=== PATIENT | male | born 1975 | race Caucasian/White ===

== ENCOUNTER 2022-10-07 06:04 | Outpatient (OUT) | payer OTHER, SELFPAY ==
--- NOTE | 2022-10-07 06:20 | NM_ITS ---
Patient: CATHI WALLACE Exam Date: 10/07/2022 : 1975 Gender:M Ordering : DR Reese Benitez . Admission #: [id number] Family : DR. NORBERTO WHITTINGTON . Order #: [id number] CLICK HERE TO VIEW EXAM RADIOLOGY REPORT PROCEDURE: NM BRYN PERF SPECT REST STR COMPARISON: None. INDICATIONS: Palpitations TECHNIQUE: Exam Description: Stress/Rest one day protocol gated SPECT Rest Imagin.9 mCi Tc-99m Cardiolite IV on 10/07/2022 Stress Imaging 30.1 mCi Tc-99m Cardiolite IV on 10/07/2022 Exercise Protocol: Pillo Heart Rate (bpm): Rest: 82 Max: 153 PMHR: 88 Blood Pressure: Rest: 124/82 Max: 164/88 Exercise Time: Minutes: 7 Seconds: 15 Stage Reached: Stage: 3 Mets 8.9 Symptoms: Rest and peak stress ECG findings were non-diagnostic and the exercise portion of the study was Non-diagnostic per attending physician Dr. Whittington . For more details please see separate cardiac stress test report. FINDINGS: QUALITY OF STUDY: Excellent. PERFUSION DEFECT: None. LOCATION: N/A SIZE: N/A. SEVERITY: N/A. TYPE: N/A. WALL MOTION: Normal. LV SIZE: Normal. 69 mL. TID / TCD: None; 1.0 LVEF: Normal. Calculated EF 74%. SUMMARY: Myocardial perfusion imaging study is NORMAL. CONCLUSION: 1. Normal nuclear medicine myocardial perfusion scan. Dictated by: Elpidio Goff M.D. on 10/08/2022 at 11:02 Approved by: Elpidio Goff M.D. on 10/08/2022 at 11:06
--- NOTE | 2022-10-07 12:23 | P.STRESS_ITS ---
Stress Test Stress Test Requesting physician: Reese Benitez Procedure: Exercise Cardiolite stress test General Information: Reason for Stress Test: Palpitations Cardiac History and Risk Factors: None Resting 12 - Lead Electrocardiogram: Rate & rhythm: Normal sinus at a rate of 82. [place]: Normal T-waves: Inverted in III ST-segments: Normal Stress Test: Protocol: Pillo protocol was followed, with injection of Cardiolite once target heart rate was achieved. Exercise capacity: Good exercise capacity. Total exercise time of 7minutes 16seconds reached Pillo stage 3 at 3.4MPH, 14% grade, & 8.9 METs. Blood pressure: Initial: 124/82, Maximum: 164/88, Recovery: 136/80 Rate & rhythm: Patient remained in sinus rhythm during the exercise and recovery portions of the study.? The maximum heart rate was 153, which was 88% of the maximum predicted heart rate 173. ST-segments & T-waves: 4 minutes into recovery, T-waves in aVF appeared biphasic - No further tracings available after this point. No changes were noted in II. Patient response/symptoms: There were no symptoms similar to the chief complaint. Interpretation: Non-diagnostic stress test with resting inverted T waves in III and development of subtle biphasic T waves in aVF during recovery, but no true ST segment changes were noted. No reproducible symptoms. Cardiolite imaging interpretation will be reported separately. Clinical correlation required.?
== END 2022-10-07 06:05 | disposition home or self-care (01) ==
PROVIDERS: PCP Family Medicine; Visit Provider Family Medicine
DX: R00.2 Palpitations (principal)
CPT/HCPCS: 78452; 93017; A9500

== ENCOUNTER 2023-03-13 12:43 | Outpatient (OUT) | payer OTHER, SELFPAY ==
[2023-03-13 13:45] LABS: Alanine Aminotransferase 54 U/L (16-63); Albumin Globulin Ratio 1.1; Albumin Level 3.7 g/dL (3.4-5.0); Alkaline Phosphatase 96 U/L (46-116); Aspartate Amino Transferase 24 U/L (15-37); Bilirubin Direct 0.2 mg/dL (0.0-0.2); Bilirubin Total 1.1 mg/dL (0.2-1.0); Chol HDL Ratio 3.5; Cholesterol 213 mg/dL (<=200); Globulin 3.5 g/dL; HDL Cholesterol 60 mg/dL (40-60); Total Protein 7.2 g/dL (6.4-8.2); Triglycerides 108 mg/dL (<=150); VLDL CHOLESTEROL 21.6 mg/dL
== END 2023-03-13 12:44 | disposition home or self-care (01) ==
LOC: LAB 12:44
PROVIDERS: PCP Family Medicine; Visit Provider Family Medicine
DX: E78.00 Pure hypercholesterolemia, unspecified (principal)
CPT/HCPCS: 36415; 80061; 80076

== ENCOUNTER 2023-04-16 07:19 | Outpatient (OUT) | payer OTHER, SELFPAY ==
--- OUTSIDE RECORDS SUMMARY | 2023-04-16 07:23 | XMS_ITS | CCD ---
Author Name Unknown Address [address] [facility] [address] [place] [id number] Organization [facility] Care Team Providers Care [employer] Consultant Name Role Phone HOY ., DR VELASCO Attending Unavailable HOY ., DR VELASCO Consulting Unavailable HOY ., DR VELASCO Primary Care Unavailable HOY ., DR VELASCO Admitting Unavailable HOY ., DR VELASCO Consulting Unavailable HOY ., DR VELASCO Primary Care Unavailable HOY ., DR VELASCO Admitting Unavailable HOY ., DR VELASCO Attending Unavailable HOY ., DR VELASCO Attending Unavailable HOY ., DR VELASCO Consulting Unavailable HOY ., DR VELASCO Primary Care Unavailable HOY ., DR VELASCO Admitting Unavailable HOY ., DR VELASCO Consulting Unavailable HOY ., DR VELASCO Primary Care Unavailable HOY ., DR VELASCO Admitting Unavailable HOY ., DR VELASCO Attending Unavailable HOY ., DR VELASCO Attending Unavailable HOY ., DR VELASCO Primary Care Unavailable HOY ., DR VELASCO Admitting Unavailable Allergies Allergy Classification Reported Allergen(s) Allergy Type Date of Onset Reaction(s) Facility (1 source) Naproxen Drug Allergy [address] [facility]ository (1 source) Sulfamethoxazole / Trimethoprim Drug Allergy [address] [facility] Problems Active Problems Problem Classification Problem Date Documented Da te Episodic/Chronic Residual codes; unclassified (4 sources) Obstructive sleep apnea (adult) (pediatric); Translations: [OBSTRUCTIVE SLEEP APNEA] Onset: 01-01-2022 Chronic Past or Other Problems Problem Classification Problem Date Documented Da te Episodic/Chronic Cardiac dysrhythmias (4 sources) Palpitations; Translations: [PALPITATIONS] Onset: 10-30-2021 Episodic Other lower respiratory disease (1 source) Dyspnea, unspecified; Translations: [DYSPNEA UNSPECIFIED] Onset: 10-31-2021 Episodic Other screening for suspected conditions (not mental disorders or infectious disease) (1 source) Encounter for screening for malignant neoplasm of prostate; Translations: [ENC SCREEN MALIG NEOPLASM PROSTATE] Onset: 10-19-2021 Episodic Results Test Name Value Interpretation Reference Range Facility CBC AUTO DIFFon 08-14-2022 BASO # 0.0 103/ul Normal 0.0-0.1 [facility] Comment on above: Performed By: #### C BC #### [facility] [address] [address] [address] Kermit Manzo Basophils/100 WBC (Bld) 0.6 % Normal 0.2-2.0 [facility] Comment on above: Performed By: #### C BC #### [facility] [address] [address] [address] Kermit Manzo EO # 0.4 103/ul Normal 0.0-0.7 [facility] Comment on above: Performed By: #### C BC #### [facility] [address] [address] [address] Kermit Manzo Eosinophils/100 WBC (Bld) 6.4 % Normal 0.9-7.0 [facility] Comment on above: Performed By: #### C BC #### [facility] [address] [address] [address] Kermit Manzo Erythrocyte distribution width (RBC) [Ratio] 12.4 % Normal 11.0-15.0 [facility] Comment on above: Performed By: #### C BC #### [facility] [address] [address] [address] Kermit Manzo Hematocrit (Bld) [Volume fraction] 47.2 % Normal 42.0-54.0 [facility] Comment on above: Performed By: #### C BC #### [facility] [address] [address] [address] Kermit Manzo Hemoglobin (Bld) [Mass/Vol] 15.5 g/dL Normal 14.0-18.0 [facility] Comment on above: Performed By: #### C BC #### [facility] [address] [address] [address] Kermit Manzo IG # 0.01 10e3/ul Normal 0.00-0.03 [facility] Comment on above: Performed By: #### C BC #### [facility] [address] [place] [address] Dr. Kermit Manzo IG % 0.2 % Normal 0.0-0.5 [facility] Comment on above: Performed By: #### C BC #### [facility] [address] [place] [address] Dr. Kermit Manzo LYMPH # 2.1 103/ul Normal 1.2-3.8 [facility] Comment on above: Performed By: #### C BC #### [facility] [address] [place] [address] Dr. Kermit Manzo Lymphocytes/100 WBC (Bld) 33.3 % Normal 20.5-60.0 [facility] Comment on above: Performed By: #### C BC #### [facility] [address] [place] [address] Dr. Kermit Manzo MANUAL DIFF REQ NO Normal [facility] Comment on above: Performed By: #### C BC #### [facility] [address] [place] [address] Dr. Kermit Manzo MCH (RBC) [Entitic mass] 28.3 pg Normal 25.9-34.0 [facility] Comment on above: Performed By: #### C BC #### [facility] [address] [place] [address] Dr. Kermit Manzo MCHC (RBC) [Mass/Vol] 32.8 g/dL Normal 29.9-35.2 [facility] Comment on above: Performed By: #### C BC #### [facility] [address] [place] [address] Dr. Kermit Manzo MCV (RBC) [Entitic vol] 86.3 fL Normal 80.0-94.0 [facility] Comment on above: Performed By: #### C BC #### [facility] [address] [place] [address] Dr. Kermit Manzo MONO # 0.6 103/ul Normal 0.3-0.8 [facility] Comment on above: Performed By: #### C BC #### [facility] [address] [place] [address] Dr. Kermit Manzo Monocytes/100 WBC (Bld) 8.9 % Normal 1.7-12.[address] [facility] Comment on above: Performed By: #### C BC #### [facility] [address] [place] [address] Dr. Kermit Manzo NEUT # 3.2 103/ul Normal 1.4-6.[address] [facility] Comment on above: Performed By: #### C BC #### [facility] [address] [place] [address] Dr. Kermit Manzo Neutrophils/100 WBC (Bld) 50.6 % Normal 43.0-75.[address] [facility] Comment on above: Performed By: #### C BC #### [facility] [address] [place] [address] Dr. Kermit Manzo Platelet mean volume (Bld) [Entitic vol] 10.2 fL Normal 9.5-13.[address] [facility] Comment on above: Performed By: #### C BC #### [facility] [address] [place] [address] Dr. Kermit Manzo PLT 274 103/ul Normal 150-[address] [facility] Comment on above: Performed By: #### C BC #### [facility] [address] [place] [address] Dr. Kermit Manzo RBC 5.47 106/ul Normal 4.70-6.[address] [facility] Comment on above: Performed By: #### C BC #### [facility] [address] [place] [address] Dr. Kermit Manzo WBC 6.4 103/ul Normal 4.0-11.[address] [facility] Comment on above: Performed By: #### C BC #### [facility] [address] [place] [address] Dr. Kermit Manzo FREE T3on 08-14-2022 FREE T3 3.47 pg/mlL Normal 2.18-3.[address] [facility] Comment on above: Performed By: #### T ESTTOT #### [facility] [address] [address] [address] Kermit Manzo GLYCOHEMOGLOBIN A1Con 2022 ADA RECOMMENDATION SEE BELOW Normal [facility] Comment on above: Result Comment: ADA RECOMMENDED LIMIT 4.0 - 6.0 ADA THERAPEUTIC TARGET < 7.0 ACTION SUGGESTED > 7.0 Performed By: #### T ESTTOT #### [facility] [address] [address] [address] Kermit Manzo Glucose [Mass/Vol] 103 mg/dL Normal [facility] Comment on above: Performed By: #### T ESTTOT #### [facility] [address] [address] [address] Kermit Manzo HbA1c (Bld) [Mass fraction] 5.2 % Normal 4.5-6.2 [facility] Comment on above: Performed By: #### T ESTTOT #### [facility] [address] [address] [address] Kermit Manzo IRONon 08-14-2022 Iron [Mass/Vol] 104.0 ug/dL Normal 65.0-175.0 [facility] Comment on above: Performed By: #### T ESTTOT #### [facility] [address] [place] [address] Dr. Kermit Manzo LIPID PROFILEon 08-14-2022 CHOL-HDL RATIO NORM SEE BELOW Normal [facility] Comment on above: Result Comment: 3.3 - 4.4 LOW RISK 4.4 - 7.1 AVERAGE RISK 7.1 - 11.0 MODERATE RISK >11.0 HIGH RISK Performed By: #### T ESTTOT #### [facility] [address] [place] [address] Dr. Kermit Manzo Cholesterol [Mass/Vol] 238 mg/dL Critically high <=200 [facility] Comment on above: Performed By: #### T ESTTOT #### [facility] [address] [place] [address] Dr. Kermit Manzo Cholesterol in HDL [Mass/Vol] 70 mg/dL Critically high 40-60 [facility] Comment on above: Performed By: #### T ESTTOT #### [facility] [address] [address] [address] Kermit Manzo Cholesterol in LDL [Mass/Vol] 150.0 mg/dL Normal [facility] Comment on above: Performed By: #### T ESTTOT #### [facility] [address] [address] [address] Kermit Manzo Cholesterol.total/Cho lesterol in HDL [Mass ratio] 3.4 {ratio} Normal [facility] Comment on above: Performed By: #### T ESTTOT #### [facility] [address] [address] [address] Kermit Manzo HDL NORMAL > or = 60 mg/dl - LO W CARDIOVASCULAR RISK <40 mg/dl - HIGH CARDIOVASCULAR RISK Normal [facility] Comment on above: Performed By: #### T ESTTOT #### [facility] [address] [address] [address] Kermit Manzo LDL CALC NORMAL SEE BELOW Normal [facility] Comment on above: Result Comment: <100 mg/dl OPTIMAL 100 - 129 mg/dl NEAR OR ABOVE OPTIMAL 130 - 159 mg/dl BORDERLINE HIGH 160 - 189 mg/dl HIGH >190 mg/dl VERY HIGH Performed By: #### T ESTTOT #### [facility] [address] [address] [address] Kermit Manzo Triglyceride [Mass/Vol] 90 mg/dL Normal <=150 [facility] Comment on above: Performed By: #### T ESTTOT #### [facility] [address] [address] [address] Kermit Manzo VLDL CALC 18.0 mg/dL Normal [facility] Comment on above: Performed By: #### T ESTTOT #### [facility] [address] [address] [address] Kermit Manzo MONOon 08-14-2022 Monocytes (Bld) [#/Vol] Negative Normal NEGATIVE [facility] Comment on above: Performed By: #### T ESTTOT #### [facility] [address] [address] [address] Kermit Manzo PROF 14(COMP METB)on 023 Albumin [Mass/Vol] 4.2 g/dL Normal 3.4-5.0 [facility] Comment on above: Performed By: #### T ESTTOT #### [facility] [address] [address] [address] Kermit Manzo Albumin/Globulin [Mass ratio] 1.1 {ratio} Normal [facility] Comment on above: Performed By: #### T ESTTOT #### [facility] [address] [address] [address] Kermit Manzo ALP [Catalytic activity/Vol] 108 U/L Normal 46-116 [facility] Comment on above: Performed By: #### T ESTTOT #### [facility] [address] [address] [address] Kermit Manzo ALT [Catalytic activity/Vol] 47 U/L Normal 16-63 [facility] Comment on above: Performed By: #### T ESTTOT #### [facility] [address] [address] [address] Kermit Manzo Anion gap [Moles/Vol] 12.7 mmol/L Normal [facility] Comment on above: Performed By: #### T ESTTOT #### [facility] [address] [address] [address] Kermit Manzo AST [Catalytic activity/Vol] 20 U/L Normal 15-37 [facility] Comment on above: Performed By: #### T ESTTOT #### [facility] [address] [address] [address] Kermit Manzo Bilirubin [Mass/Vol] 1.5 mg/dL Critically high 0.2-1.0 [facility] Comment on above: Performed By: #### T ESTTOT #### [facility] [address] [address] [address] Kermit Manzo Calcium [Mass/Vol] 8.9 mg/dL Normal 8.5-10.1 [facility] Comment on above: Performed By: #### T ESTTOT #### [facility] [address] [place] [address] Dr. Kermit Manzo Chloride [Moles/Vol] 102 mmol/L Normal 98-107 [facility] Comment on above: Performed By: #### T ESTTOT #### [facility] [address] [address] [address] Kermit Manzo CO2 [Moles/Vol] 28.6 mmol/L Normal 21.0-32.0 [facility] Comment on above: Performed By: #### T ESTTOT #### [facility] [address] [address] [address] Kermit Manzo Creatinine [Mass/Vol] 0.97 mg/dL Normal 0.70-1.[address] [facility] Comment on above: Performed By: #### T ESTTOT #### [facility] [address] [place] [address] Dr. Kermit Manzo EGFR-AF ESTONIAN >60 Normal >=60 [facility] Comment on above: Performed By: #### T ESTTOT #### [facility] [address] [address] [address] Kermit Manzo EGFR-NON AF ESTONIAN >60 Normal >=60 [facility] Comment on above: Performed By: #### T ESTTOT #### [facility] [address] [address] [address] Kermit Manzo Globulin (S) [Mass/Vol] 3.8 g/dL Normal [facility] Comment on above: Performed By: #### T ESTTOT #### [facility] [address] [address] [address] Kermit Manzo Glucose [Mass/Vol] 88 mg/dL Normal 74-106 [facility] Comment on above: Performed By: #### T ESTTOT #### [facility] [address] [address] [address] Kermit Manzo Potassium [Moles/Vol] 4.3 mmol/L Normal 3.5-5.1 [facility] Comment on above: Performed By: #### T ESTTOT #### [facility] [address] [address] [address] Kermit Manzo Protein [Mass/Vol] 8.0 g/dL Normal 6.4-8.2 [facility] Comment on above: Performed By: #### T ESTTOT #### [facility] [address] [place] [address] Dr. Kermit Manzo Sodium [Moles/Vol] 139 mmol/L Normal 136-145 [facility] Comment on above: Performed By: #### T ESTTOT #### [facility] [address] [place] [address] Dr. Kermit Manzo Urea nitrogen [Mass/Vol] 12.0 mg/dL Normal 7.0-18.0 [facility] Comment on above: Performed By: #### T ESTTOT #### [facility] [address] [place] [address] Dr. Kermit Manzo Urea nitrogen/Creatinine [Mass ratio] 12.4 mg/mg Normal [facility] Comment on above: Performed By: #### T ESTTOT #### [facility] [address] [place] [address] Dr. Kermit Manzo T4on 08-14-2022 T4 [Mass/Vol] 10.30 ug/dL Normal 4.50-12.10 [facility] Comment on above: Performed By: #### T ESTTOT #### [facility] [address] [place] [address] Dr. Kermit Manzo TSHon 08-14-2022 TSH 1.621 uIU/mL Normal 0.358-3.740 [facility] Comment on above: Performed By: #### T ESTTOT #### [facility] [address] [place] [address] Dr. Kermit Manzo VITAMIN D 25 OHon 08-14-2022 VIT D 25-OH 67.9 ng/mL Normal [facility] Comment on above: Performed By: #### T ESTTOT #### [facility] [address] [place] [address] Dr. Kermit Manzo VIT D RANGES SEE BELOW Normal [facility] Comment on above: Result Comment: <20 ng/mL Vit D deficient 20 - <30 ng/mL Vit D insufficient 30 - 100 ng/mL Vit D sufficient >100 ng/mL Potential Toxicity Performed By: #### T ESTTOT #### [facility] [address] [place] [address] Dr. Kermit Manzo INSULINon 10-16-2021 Insulin 9.8 uIU/mL Normal 2.6-24.9 [facility] Comment on above: Performed By: #### I NSULIN #### [facility] [address] [place] [address] Dr. Kermit Manzo TESTOSTERONE, TOTALon 2021 Testosterone [Mass/Vol] 270 ng/dL Normal 264-[address] [facility] Comment on above: Result Comment: Adul t male reference interval is based on a population of healthy nonobese males (BMI <30) between 19 and 39 years old. cullen Lynne.al. JCEM 2017,102;6936-3481. PMID: [id number]. Performed By: #### T ESTTOT #### [facility] [address] [place] [address] Dr. Kermit Manzo CBC AUTO DIFFon 10-15-2021 BASO # 0.0 103/ul Normal 0.0-0.1 [facility] Comment on above: Performed By: #### C BC #### [facility] [address] [place] [address] Dr. Kermit Manzo Basophils/100 WBC (Bld) 0.6 % Normal 0.2-2.0 [facility] Comment on above: Performed By: #### C BC #### [facility] [address] [place] [address] Dr. Kermit Manzo EO # 0.6 103/ul Normal 0.0-0.[address] [facility] Comment on above: Performed By: #### C BC #### [facility] [address] [place] [address] Dr. Kermit Manzo Eosinophils/100 WBC (Bld) 8.7 % Critically high 0.9-7.0 [facility] Comment on above: Performed By: #### C BC #### [facility] [address] [place] [address] Dr. Kermit Manzo Erythrocyte distribution width (RBC) [Ratio] 12.3 % Normal 11.0-15.0 [facility] Comment on above: Performed By: #### C BC #### [facility] [address] [place] [address] Dr. Kermit Manzo Hematocrit (Bld) [Volume fraction] 44.9 % Normal 42.0-54.0 [facility] Comment on above: Performed By: #### C BC #### [facility] [address] [place] [address] Dr. Kermit Manzo Hemoglobin (Bld) [Mass/Vol] 15.0 g/dL Normal 14.0-18.0 [facility] Comment on above: Performed By: #### C BC #### [facility] [address] [place] [address] Dr. Kermit Manzo IG # 0.01 10e3/ul Normal 0.00-0.03 [facility] Comment on above: Performed By: #### C BC #### [facility] [address] [place] [address] Dr. Kermit Manzo IG % 0.2 % Normal 0.0-0.5 [facility] Comment on above: Performed By: #### C BC #### [facility] [address] [place] [address] Dr. Kermit Manzo LYMPH # 2.4 103/ul Normal 1.2-3.8 [facility] Comment on above: Performed By: #### C BC #### [facility] [address] [place] [address] Dr. Kermit Manzo Lymphocytes/100 WBC (Bld) 37.8 % Normal 20.5-60.0 [facility] Comment on above: Performed By: #### C BC #### [facility] [address] [place] [address] Dr. Kermit Manzo MANUAL DIFF REQ NO Normal [facility] Comment on above: Performed By: #### C BC #### [facility] [address] [place] [address] Dr. Kermit Manzo MCH (RBC) [Entitic mass] 28.7 pg Normal 25.9-34.0 [facility] Comment on above: Performed By: #### C BC #### [facility] [address] [address] [address] Kermit Manzo MCHC (RBC) [Mass/Vol] 33.4 g/dL Normal 29.9-35.2 [facility] Comment on above: Performed By: #### C BC #### [facility] [address] [address] [address] Kermit Manzo MCV (RBC) [Entitic vol] 85.9 fL Normal 80.0-94.0 [facility] Comment on above: Performed By: #### C BC #### [facility] [address] [place] [address] Dr. Kermit Manzo MONO # 0.7 103/ul Normal 0.3-0.8 [facility] Comment on above: Performed By: #### C BC #### [facility] [address] [place] [address] Dr. Kermit Manzo Monocytes/100 WBC (Bld) 11.1 % Normal 1.7-12.0 [facility] Comment on above: Performed By: #### C BC #### [facility] [address] [place] [address] Dr. Kermit Manzo NEUT # 2.7 103/ul Normal 1.4-6.5 [facility] Comment on above: Performed By: #### C BC #### [facility] [address] [place] [address] Dr. Kermit Manzo Neutrophils/100 WBC (Bld) 41.6 % Critically low 43.0-75.0 [facility] Comment on above: Performed By: #### C BC #### [facility] [address] [place] [address] Dr. Kermit Manzo Platelet mean volume (Bld) [Entitic vol] 9.4 fL Critically low 9.5-13.5 [facility] Comment on above: Performed By: #### C BC #### [facility] [address] [place] [address] Dr. Kermit Manzo PLT 245 103/ul Normal 150-[address] [facility] Comment on above: Performed By: #### C BC #### [facility] [address] [place] [address] Dr. Kermit Manzo RBC 5.23 106/ul Normal 4.70-6.10 [facility] Comment on above: Performed By: #### C BC #### [facility] [address] [place] [address] Dr. Kermit Manzo WBC 6.5 103/ul Normal 4.0-11.0 [facility] Comment on above: Performed By: #### C BC #### [facility] [address] [place] [address] Dr. Kermit Manzo FREE THYROXINE INDEX T7on FTI 3.57 Normal 1.30-4.50 [facility] Comment on above: Performed By: #### T 7, LIPID, URIC, TSH, CMP #### [facility] [address] [place] [address] Dr. Kermit Manzo T3U 35.0 % Normal 33.0-40.0 [facility] Comment on above: Performed By: #### T 7, LIPID, URIC, TSH, CMP #### [facility] [address] [place] [address] Dr. Kermit Manzo T4 [Mass/Vol] 10.20 ug/dL Normal 4.50-12.10 [facility] Comment on above: Performed By: #### T 7, LIPID, URIC, TSH, CMP #### [facility] [address] [place] [address] Dr. Kermit Manzo GLYCOHEMOGLOBIN A1Con 2021 ADA RECOMMENDATION SEE BELOW Normal [facility] Comment on above: Result Comment: ADA RECOMMENDED LIMIT 4.0 - 6.0 ADA THERAPEUTIC TARGET < 7.0 ACTION SUGGESTED > 7.0 Performed By: #### A 1C #### [facility] [address] [place] [address] Dr. Kermit Manzo Glucose [Mass/Vol] 108 mg/dL Normal [facility] Comment on above: Performed By: #### A 1C #### [facility] [address] [place], [place] [id number] Dr. Kermit Manzo HbA1c (Bld) [Mass fraction] 5.4 % Normal 4.5-6.2 [facility] Comment on above: Performed By: #### A 1C #### [facility] [address] [place] [address] Dr. Kermit Manzo LIPID PROFILEon 10-15-2021 CHOL-HDL RATIO NORM SEE BELOW Normal [facility] Comment on above: Result Comment: 3.3 - 4.4 LOW RISK 4.4 - 7.1 AVERAGE RISK 7.1 - 11.0 MODERATE RISK >11.0 HIGH RISK Performed By: #### T 7, LIPID, URIC, TSH, CMP #### [facility] [address] [place] [address] Dr. Kermit Manzo Cholesterol [Mass/Vol] 206 mg/dL Critically high <=200 [facility] Comment on above: Performed By: #### T 7, LIPID, URIC, TSH, CMP #### [facility] [address] [place] [address] Dr. Kermit Manzo Cholesterol in HDL [Mass/Vol] 57 mg/dL Normal 40-60 [facility] Comment on above: Performed By: #### T 7, LIPID, URIC, TSH, CMP #### [facility] [address] [place] [address] Dr. Kermit Manzo Cholesterol in LDL [Mass/Vol] 129.4 mg/dL Normal [facility] Comment on above: Performed By: #### T 7, LIPID, URIC, TSH, CMP #### [facility] [address] [place] [address] Dr. Kermit Manzo Cholesterol.total/Cho lesterol in HDL [Mass ratio] 3.6 {ratio} Normal [facility] Comment on above: Performed By: #### T 7, LIPID, URIC, TSH, CMP #### [facility] [address] [place] [address] Dr. Kermit Manzo HDL NORMAL > or = 60 mg/dl - LO W CARDIOVASCULAR RISK <40 mg/dl - HIGH CARDIOVASCULAR RISK Normal [facility] Comment on above: Performed By: #### T 7, LIPID, URIC, TSH, CMP #### [facility] [address] [address] [address] Kermit Manzo LDL CALC NORMAL SEE BELOW Normal [facility] Comment on above: Result Comment: <100 mg/dl OPTIMAL 100 - 129 mg/dl NEAR OR ABOVE OPTIMAL 130 - 159 mg/dl BORDERLINE HIGH 160 - 189 mg/dl HIGH >190 mg/dl VERY HIGH Performed By: #### T 7, LIPID, URIC, TSH, CMP #### [facility] [address] [address] [address] Kermit Manzo Triglyceride [Mass/Vol] 98 mg/dL Normal <=150 [facility] Comment on above: Performed By: #### T 7, LIPID, URIC, TSH, CMP #### [facility] [address] [address] [address] Kermit Manzo VLDL CALC 19.6 mg/dL Normal [facility] Comment on above: Performed By: #### T 7, LIPID, URIC, TSH, CMP #### [facility] [address] [address] [address] Kermit Manzo PROF 14(COMP METB)on 022 Albumin [Mass/Vol] 4.2 g/dL Normal 3.4-5.0 [facility] Comment on above: Performed By: #### T 7, LIPID, URIC, TSH, CMP #### [facility] [address] [address] [address] Kermit Manzo Albumin/Globulin [Mass ratio] 1.2 {ratio} Normal [facility] Comment on above: Performed By: #### T 7, LIPID, URIC, TSH, CMP #### [facility] [address] [address] [address] Kermit Manzo ALP [Catalytic activity/Vol] 94 U/L Normal 46-[address] [facility] Comment on above: Performed By: #### T 7, LIPID, URIC, TSH, CMP #### [facility] [address] [address] [address] Kermit Manzo ALT [Catalytic activity/Vol] 44 U/L Normal 16-63 [facility] Comment on above: Performed By: #### T 7, LIPID, URIC, TSH, CMP #### [facility] [address] [place] [address] Dr. Kermit Manzo Anion gap [Moles/Vol] 12.5 mmol/L Normal [facility] Comment on above: Performed By: #### T 7, LIPID, URIC, TSH, CMP #### [facility] [address] [place] [address] Dr. Kermit Manzo AST [Catalytic activity/Vol] 22 U/L Normal 15-37 [facility] Comment on above: Performed By: #### T 7, LIPID, URIC, TSH, CMP #### [facility] [address] [place] [address] Dr. Kermit Manzo Bilirubin [Mass/Vol] 1.6 mg/dL Critically high 0.2-1.0 [facility] Comment on above: Performed By: #### T 7, LIPID, URIC, TSH, CMP #### [facility] [address] [place] [address] Dr. Kermit Manzo Calcium [Mass/Vol] 8.9 mg/dL Normal 8.5-10.1 [facility] Comment on above: Performed By: #### T 7, LIPID, URIC, TSH, CMP #### [facility] [address] [place] [address] Dr. Kermit Manzo Chloride [Moles/Vol] 103 mmol/L Normal 98-107 [facility] Comment on above: Performed By: #### T 7, LIPID, URIC, TSH, CMP #### [facility] [address] [place] [address] Dr. Kermit Manzo CO2 [Moles/Vol] 27.6 mmol/L Normal 21.0-32.0 [facility] Comment on above: Performed By: #### T 7, LIPID, URIC, TSH, CMP #### [facility] [address] [place] [address] Dr. Kermit Manzo Creatinine [Mass/Vol] 1.01 mg/dL Normal 0.70-1.30 [facility] Comment on above: Performed By: #### T 7, LIPID, URIC, TSH, CMP #### [facility] [address] [address] [address] Kermit Manzo EGFR-AF ESTONIAN >60 Normal >=60 [facility] Comment on above: Performed By: #### T 7, LIPID, URIC, TSH, CMP #### [facility] [address] [address] [address] Kermit Manzo EGFR-NON AF ESTONIAN >60 Normal >=[address] [facility] Comment on above: Performed By: #### T 7, LIPID, URIC, TSH, CMP #### [facility] [address] [address] [address] Kermit Manzo Globulin (S) [Mass/Vol] 3.5 g/dL Normal [facility] Comment on above: Performed By: #### T 7, LIPID, URIC, TSH, CMP #### [facility] [address] [address] [address] Kermit Manzo Glucose [Mass/Vol] 101 mg/dL Normal 74-106 [facility] Comment on above: Performed By: #### T 7, LIPID, URIC, TSH, CMP #### [facility] [address] [address] [address] Kermit Manzo Potassium [Moles/Vol] 4.1 mmol/L Normal 3.5-5.[address] [facility] Comment on above: Performed By: #### T 7, LIPID, URIC, TSH, CMP #### [facility] [address] [address] [address] Kermit Manzo Protein [Mass/Vol] 7.7 g/dL Normal 6.4-8.2 [facility] Comment on above: Performed By: #### T 7, LIPID, URIC, TSH, CMP #### [facility] [address] [address] [address] Kermit Manzo Sodium [Moles/Vol] 139 mmol/L Normal 136-145 [facility] Comment on above: Performed By: #### T 7, LIPID, URIC, TSH, CMP #### [facility] [address] [address] [address] Kermit Manzo Urea nitrogen [Mass/Vol] 15.0 mg/dL Normal 7.0-18.0 [facility] Comment on above: Performed By: #### T 7, LIPID, URIC, TSH, CMP #### [facility] [address] [address] [address] Kermit Manzo Urea nitrogen/Creatinine [Mass ratio] 14.9 mg/mg Normal [facility] Comment on above: Performed By: #### T 7, LIPID, URIC, TSH, CMP #### [facility] [address] [address] [address] Kermit Manzo TSHon 10-15-2021 TSH 2.082 uIU/mL Normal 0.358-3.740 [facility] Comment on above: Performed By: #### T 7, LIPID, URIC, TSH, CMP #### [facility] [address] [place] [address] Dr. Kermit Manzo URIC ACID SERUMon 10-15-2021 Urate [Mass/Vol] 7.0 mg/dL Normal 3.5-7.2 [facility] Comment on above: Performed By: #### T 7, LIPID, URIC, TSH, CMP #### [facility] [address] [place] [address] Dr. Kermit Manzo Ambulatory Clinical Summaryo 11-26-2019 Ambulatory Clinical Summary {[id number] Normal [facility] Ambulatory Clinical Summary {[id number] Normal [facility] Patient Educationon 11-26-19 Patient Education Family Medicine Kidney Stones Kidney stones (ureteral lithiasis ) are solid masses that form inside your kidneys. The intense pain is caused by the stone moving through the kidney, ureter, bladder, and urethra (urinary tract ). When the stone moves, the ureter starts to spasm around the stone. The stone is usually passed in the urine. HOME CARE ? Drink enough fluids to keep your pee (urine ) clear or pale yellow. This helps to get the stone out. ? Strain all pee through the provided strainer. Do not pee without peeing through the strainer, not even once. If you pee the stone out, catch it. The stone may be as small as a grain of salt. Take this to your doctor. ? Only take medicine as told by your doctor. ? Follow up with your doctor as told. ? Get follow-up X-rays as told by your doctor. GET HELP RIGHT AWAY IF: ? Your pain does not get better with medicine. ? You have a fever. ? Your pain increases and gets worse over 18 hours. ? You have new belly (abdominal ) pain. ? You feel faint or pass out. MAKE SURE YOU: ? Understand these instructions. ? Will watch your condition. ? Will get help right away if you are not doing well or get worse. Document Released: 08/19/2008 Document Revised: 05/25/2012 Document Reviewed: 12/29/2009 ExitCare? Patient Information ?2013 [employer]. Normal [facility] Urology Office/Clinic Noteon 11-26-2019 Urology Office/Clinic Note Chief Complaint 18mo f/u w/KUB HPI Staff 18mo f/u w/KUB due to kidney stone, L testicular pain, epididymal cyst, varicocele and benign cyst of testis. S/P Rt Orchiectomy done 20+ years ago. KUB done 11/18/19 @[facility] [place] like he was having a kidney stone attack about 3 months ago only lasted for a short time. Has since then subsided. Denies current pain/burning while urinating. Denies visible blood in urine. Denies flank/abdominal pain. Denies any urinary complications at this time. History of Present Illness Reviewed KUB and film. Reviewed UA. There have been no associated fever, chills, flank pain or blood in the urine. Pt. denies any pain/burning with urination at this time. Review of Systems PHQ Score Initial Depression Screen Score: 0 ROS - Provider Constitutional: denies weight loss, denies hot flashes. Eyes: denies eye problems. Gastrointestinal: denies nausea, denies vomiting. Cardiovascular: denies chest pain or angina. Integumentary: no dryness Musculoskeletal: denies musculoskeletal symptoms. ENMT: denies otolaryngeal symptoms. Respiratory: no shortness of breath. Heme/Lymph: denies easy bleeding tendency, denies easy bruising tendency. Psychiatric: no confusion, no anxiety. Genitourinary: denies dysuria, denies hematuria, denies discharge, denies urinary frequency, denies urinary hesitancy, denies nocturia, denies incontinence, denies genital sores, denies decreased libido, and denies erectile dysfunction. Physical Exam Vitals & Measurements HR: 96(Peripheral) RR: 16 BP: 131/90 HT: 179 cm HT: 179.0 cm WT: 97.1 kg WT: 97.1 kg BMI: 30.3 General Appearance: alert, no distress, well nourished, well developed male. Flank Pain: none. Bladder: nonpalpable. Assessment/Plan 1. Kidney stone (N20.0: Calculus of kidney) Pt. denies any urination concerns/issues. Pt. states that 3mos. ago he had a sharp pain on his left side that lasted for a short time. Last CT done 04/2018 shows a tiny nonobstructing stone in the lower pole of the left kidney. Pt. believes that this the stone that he had passed and pt. denies any stone issues since. Most current KUB done 11/25/2019 that shows no obvious stones. Recommended pt. to increase fluid intake to ten to twelve 16oz bottles a day; preferably water, clear pop, and sugar free lemonade. All questions/concerns were discussed. Pt. to call the office if heencounters any issues prior. Pt. acknowledges understanding. Pt. to do metabolic work-up. F/u in 3 mos. to review results. 2. 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 I have reviewed the previous health record information and history for this pt. from Dr. Schmitt. Follow-up With When Contact Information OSKAR HOFFMANN, Kenan Maldonado [address] [place] [address] [place] [address]- [phone] Additional Instructions: 3 mos. w/ metabolic w/up Patient Education Kidney Stones, Nsrr-if-Fcka Julee Vega , personally scribed for Dr. Schmitt on 11/26/2019 12:53:51. . Documentation recorded by the scribe, Julee Bermudez, accurately reflects the services(s) I performed and decisions made by me. Authenticated by Dr. Schmitt on 11/26/2019 12:56:09. Problem List/Past Medical History Ongoing Kidney stone Renal stones Varicocele Historical No qualifying data Procedure/Surgical History Cholecystectomy, Colonoscopy, Orchiectomy, Tonsillectomy. Medications No active medications Allergies naproxen (Mild) sulfa drugs (Mild) trimethoprim (Mild) Social History Tobacco Never (less than 100 in lifetime) Tobacco Use:. Never Smokeless Tobacco Use:., 11/26/2019 Family History Hypertension: Father. Kidney stones: Father. Lab Results Ambulatory Point of Care Results Bilirubin Urine Dipstick: Negative (11/26/19 11:50:00) Blood Urine Dipstick: Negative (11/26/19 11:50:00) Glucose Urine Dipstick: Negative (11/26/19 11:50:00) Ketones Urine Dipstick: Negative (11/26/19 11:50:00) Leukocytes Urine Dipstick: Negative (11/26/19 11:50:00) Nitrite Urine Dipstick: Negative (11/26/19 11:50:00) Protein Urine Dipstick: Negative (11/26/19 11:50:00) Specific [place] Urine Dipstick: 1.025 (11/26/19 11:50:00) Urine Appearance Urine Dipstick: Clear (11/26/19 11:50:00) Urine Color Urine Dipstick: Yellow (11/26/19 11:50:00) Urobilinogen Urine Dipstick: Normal 0.2-1 EU/dl (11/26/19 11:50:00) pH Urine Dipstick: 7 (11/26/19 11:50:00) Normal [facility] Comment on above: Result Comment: Elec tronically Signed By: Kenan SCHMITT MD\.br\Date and Time Signed: 11/26/19 12:56 EDT\.br\Electronically Co-Signed By: Julee Bermudez MA.br\Date and Time Co-Signed: 11/26/19 12:54 EDT\.br\Electronically Co-Signed By: Julee Bermudez MA\.br\Date and Time Co-Signed: 11/26/19 12:55 EDT Encounters Encounter Date Encounter Type Care Provider Facility Start: 08-14-[address] KRISTA LAND . [facility]ili [facility] Start: 01-01-2022 End: 01-02-[address] KRISTA LNAD . Facility:[facility] Start: 11-12-2021 End: 11-13-[address] KRISTA LAND . Facility:[facility] Start: 10-30-2021 End: 10-31-[address] KRISTA LAND . Facility:[facility] Start: 10-19-2021 Encounter for genera l adult medical examination without abnormal findings DR KRISTA LAND . [facility] Start: 10-15-2021 End: 10-16-[address] KRISTA LAND . Facility:[facility] Start: 10-15-2021 End: 10-16-2021 Encounter for general adult medical examination without abnormal findings DR KRISTA LAND . Facility:[facility] Procedures Date Procedure Procedure Detail Performing Clinician Start: 10-15-[address] ALMA DELIA LAND . Comment on above: Performed By: #### T ESTTOT #### [facility] [address] [place] [address] Dr. Kermit Manzo Payers Date Payer Category Payer Unknown [id number] 2.16.84 [id number] 1975 Unknown [id number] 2.16.84 [id number] 1975 Unknown [id number] 2.16.84 [id number] 1975 Unknown [id number] 2.16.84 [id number] 1975 Unknown [id number] 2.16.84 [id number] 1959 Unknown [id number] Summary Purpose Family History No Family History Records FoundNo Family History Records Found Advance Directives No Advanced Directives Records FoundNo Advanced Directives Records Found Additional Source Comments (unrecognized sect ion and content) No Status Records FoundNo Status Records Found INFORMATION SOURCE (unrecogn ized section and content) DATE CREATED AUTHOR 03/30/2020 Sunil Jean [facility] DATE CREATED AUTHOR AUTHOR'Layla RICHARD 08/23/2022 [facility] FOR RECORDS PERTAINING TO PATIENTS WHO ARE OR HAVE BEEN ENROLLED IN A CHEMICAL DEPENDENCY/SUBSTANCEABUSE PROGRAM, SOME INFORMATION MAY BE OMITTED. This clinical summary was aggregated from multiple sources. Caution should be exercised in using it in the provision of clinical care. This summary normalizes information from multiple sources, and as a consequence, information in this document may materially change the coding, format and clinical context of patient data. In addition, data may be omitted in some cases. CLINICAL DECISIONS SHOULD BE BASED ON THE PRIMARY CLINICAL RECORDS. [employer] provides no warranty or guarantee of the accuracy or completeness of information in this document.
--- NOTE | 2023-04-16 07:27 | XR_ITS ---
The [address] [address] Patient Name: CATHI WALLACE MRN: [id number] date: 1975 Sex: M Assigned Patient Location: LAB Current Patient Location: LAB Accession/Order Number: [id number] Exam Date: 04/16/2023 07:30 Report Date: 04/16/2023 07:51 At the request of: KRISTA LAND Procedure: XR chest 2V EXAM: CHEST 2 VIEWS HISTORY: Chronic Cough for 6 months. TECHNIQUE: PA and lateral views chest. COMPARISON: None. FINDINGS: The lungs are clear. There is no focal lung consolidation, pleural effusion or pneumothorax. Pulmonary vasculature is within normal limits. The cardiomediastinal silhouette is normal. XR/XR chest 2V IMPRESSION: 1. Clear lungs without acute cardiopulmonary disease. Consider chest CT for further evaluation if symptoms worsen or persist. Electronically authenticated by: TYLER BOOKER Date: 04/16/2023 07:51
== END 2023-04-16 07:20 | disposition home or self-care (01) ==
LOC: LAB 07:20
PROVIDERS: PCP Family Medicine; Visit Provider Family Medicine
DX: R05.3 Chronic cough (principal)
CPT/HCPCS: 71046; 87070; 87205